=== PATIENT | male | born 1985 | race African-American/Black ===

== ENCOUNTER 2018-05-04 08:12 | Day surgery (SDC) | payer OTHER ==
[~2018-05-04] VITALS: Ht 182.9 cm; Wt 101.0 kg
[2018-05-04] VITALS (17 sets, daily range): BP systolic 84–131; BP diastolic 43–82; PULSE 62–112; RESP 12–22
--- NOTE | 2018-05-04 09:53 | HPN ---
Date/Time of Note Date/Time of Note DATE: 05/04/18 TIME: 09:53 Interval H&P Admission Note Pt. seen H&P reviewed: No system changes GE WISE MD May 04, 2018 09:53
--- NOTE | 2018-05-04 10:14 | PREAC ---
Date/Time of Note Date/Time of Note DATE: 05/04/18 TIME: 10:13 Anesthesia Eval and Record Evaluation Time Pre-Procedure Interview DATE: 05/04/18 TIME: 10:13 Age 32 Sex male NPO: 8 hrs Preoperative diagnosis right knee meniscus tear Planned procedure right knee arthroscopy Past Medical History Past Medical History: Includes GI: Obesity Surgery & Anesthesia Issues No known issue Meds Anticoagulation: No Beta Sandra within 24 hr: No Reason Beta Sandra not given: Pt. not on B-Sandra No Active Prescriptions or Reported Meds Meds reviewed: Yes Allergies Coded Allergies: No Known Allergy (Unverified , 05/04/18) Allergies Reviewed: Yes Labs/Studies Labs Reviewed: Reviewed by anesthesiologist test: N/A Pre-procedure Exam Last vitals Vital Signs Date Temp Pulse Resp B/P (MAP) Pulse Ox O2 O2 Flow FiO2 Time Delivery Rate 05/04/18 98.0 62 18 111/69 99 Room Air 08:49 (83) Airway: Adequate mouth opening, Adequate thyromental dist Mallampati: Mallampati II Teeth: Normal Lung: Normal Heart: Normal ASA Physical Status ASA physical status: 2 Emergency: None Planned Anesthetic General/MAC: LMA Planned Pain Management Parenteral pain med Pre-operative Attestations Prior to commencing anesthesia and surgery, the patient was re-evaluated, there was verification of: *The patient's identity *The results of appropriate recent lab work and preoperative vital signs *The above evaluation not changing prior to induction *Anesthetic plan, risk benefits, alternative and complications discussed with patient/family; questions answered; patient/family understands, accepts and wishes to proceed. ALONZO STRONG MD May 04, 2018 10:14
[2018-05-04] MEDS ORDERED: LIDOCAINE 1% (MPF) 30 ML INJ ONE (10:29)
[2018-05-04] MEDS ORDERED: TRIAMCINOLONE ACET 40 MG/ML INJ ONE (10:29)
[2018-05-04] MEDS ORDERED: FENTAnyl 50 MCG/ML VIAL IV PRN ×3 (10:30)
[2018-05-04] MEDS ORDERED: ONDANSETRON 4 MG INJ IV PRN (10:30)
[2018-05-04] MEDS ORDERED: OXYCODONE/ACETAMINOPHEN (5/325) TAB PO PRN (10:30)
[2018-05-04] MEDS ORDERED: HYDROmorphONE 1 MG/5 ML IV SYRINGE IV PRN ×3 (10:30)
[2018-05-04] MEDS ORDERED: PROCHLORPERAZINE 10 MG INJ IV PRN (10:30)
[2018-05-04] MEDS ORDERED: MEPERIDINE 25 MG INJ IV PRN (10:30)
[2018-05-04] MEDS ORDERED: DIPHENHYDRAMINE 50 MG INJ IV PRN (10:30)
[2018-05-04] MEDS ORDERED: FENTAnyl 50 MCG/ML VIAL ONE (10:38)
[2018-05-04] MEDS ORDERED: LIDOCAINE 2% (SDV) 5 ML INJ ONE (10:38)
[2018-05-04] MEDS ORDERED: PROPOFOL 20 ML ONE ×2 (10:38→10:47)
[2018-05-04] MEDS ORDERED: MIDAZOLAM 1 MG/ML 2 ML INJ ONE (10:38)
[2018-05-04] MEDS ORDERED: CEFAZOLIN 1 GM INJ ONE (10:47)
[2018-05-04] MEDS ORDERED: ONDANSETRON 4 MG INJ ONE (10:53)
[2018-05-04] MEDS ORDERED: FAMOTIDINE 20 MG INJ ONE (10:53)
[2018-05-04] MEDS ORDERED: DEXAMETHASONE 4 MG/ML 5 ML INJ ONE (10:53)
[2018-05-04] MEDS ORDERED: GLYCOPYRROLATE 0.4 MG INJ ONE (11:26)
--- NOTE | 2018-05-04 11:34 | SIPON ---
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
--- NOTE | 2018-05-04 11:38 | OPR ---
Date/Time of Note Date/Time of Note DATE: 05/04/18 TIME: 11:34 Operative Report Free Text/Dictation DATE OF SURGERY: May 04, 2018 PREOPERATIVE DIAGNOSIS: 8 knee posterior horn medial meniscal tear POSTOPERATIVE DIAGNOSIS: 1. Right Knee Medial Meniscus Tear 2. Right Knee partial ACL tear 3. 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 Right knee arthroscopy with partial medial meniscectomy 2. Right knee arthroscopy with partial lateral meniscectomy 2. Right knee steroid injection, CPT 39284 SURGEON: GE WISE MD ANESTHESIOLOGIST:Dr. Landers ANESTHESIA: General TOURNIQUET TIME: 16 minutes at 250mmHg BLOOD LOSS: Minimal. SPECIMEN: None. DISPOSITION: PACU IN STABLE CONDITION HISTORY: The patient is an 32 year-old male with a right knee posterior horn medial meniscus tear, who had failed non-operative intervention. The patient reported increasing pain with physical therapy and strongly desired other treatment. All risks, benefits, and potential complications of the procedure were then discussed including but not limited to DVT, PE, infection, damage to neurovascular structures, progression of arthritis, need to revision surgery, heart attack, stroke, and even . Patient understood the risks and informed consent was obtained. PROCEDURE: All risks, benefits, and potential complications of the procedure were discussed with the patient, informed consent was obtained. Patient was met in the pre-operative suite and the correct operative site was confirmed and mar ked. The patient was then transferred from the preoperative care unit to operating suite. Department of Anesthesia administered anesthetic without complications. After this, the patient was transferred to the operating table and positioned. All bony prominences were well padded. The patient was placed into the supine position. A proximal thigh tourniquet was placed. The tourniquet was then inflated to 250 mmHg. The knee was examined for range of motion and laxity. The right lower extremity was then sterilely prepped and draped in the normal fashion. Before starting a time out was taken to identify the correct operative site, and to confirm preoperative antibiotics consisting of 1 gram of IV Ancef were administered. An 11-blade stab incision was made along the anterolateral aspect for the anterolateral portal. A [place] trocar was then inserted and the arthroscope was then introduced. t was confirmed to be within the joint proper. A systematic tour about the knee was performed beginning in the suprapatellar pouch, followed by the patellofemoral region, medial gutter, medial compartment, intercondylar notch, lateral compartment, lateral gutter, and the posterolateral corner, With the arthroscope visualizing in the medial compartment, the determination of the anteromedial portal was made by inserting a spinal needle so that it would be in the proper orientation above the anterior horn of the medial meniscus directed back toward the posterior horn. Once this orientation was determined, an 11-blade stab incision was made at that site, again, followed by the insertion of a [place] trocar. An arthroscopy probe was then inserted and a subsequent systematic tour in the reverse direction utilizing the probe was then made. All menisci were probed. All articular cartilage surfaces of the tibial, femoral, and patella were probed. The cruciate ligaments also were probed. Again, any abnormal findings would be found in the top of this operative report. THERAPEUTIC ARTHROSCOPY: A posterior horn tear of the medial meniscus in the white-white zone to white- red zone, which was complex in nature and was irreparable, was debrided back to a stable margins using an arthroscopy meniscal biter and a 4.0 shaver. The medial femoral condyle did not require chondroplasty. The anterior cruciate ligament was noted to have a partial tear. The anterior and posterior cruciate ligaments were visualized, probed, stressed and found to be intact. The arthroscope was introduced into the lateral compartment. There was grade IV chondromalacia of the lateral femoral condyle. No chondroplasty was required. There was a complex tear of the anterior horn of the lateral meniscus. The shaver was used to perform a partial lateral meniscectomy. The arthroscope was removed from the lateral compartment and was placed into the medial portal, and again, a tour of the knee was made this time visualizing it from the medial side and with the arthroscopy probe placed at the lateral portal. There was no further pathology identified. There was no evidence of remaining loose body or other abnormality. All instruments were eventually able to be removed with no evidence of any breakage. The arthroscopy portals were reapproximated using 4-0 nylon in interrupted fashion. Prior to the removal of the arthroscope, 3cc of 1% Lidocai ne along with 1cc of kenalog were distilled into the knee joint before closure. The tourniquet was released. There was no significant bleeding. The wounds were dressed with sterile bandages and a compression wrap from the toes to the mid thigh was placed. The patient was transferred off of the operating table back to a hospital stretcher and taken to the recovery room in fair condition. There was no evidence of any vascular deficit. POSTOPERATIVE PLAN: The patient will be permitted weightbearing as tolerated and is encouraged to frequently flex and extend the knee as well the ankle. Crutches will be provided for patient if unable to ambulate without the use of these assistive devices. Appropriate oral analgesics and oral antiinflammatory medications will be provided for the patient.The patient was instructed on ice and elevation to the limb. The patient will follow up in my office in approximately 7-14 days for postoperative consultation, wound examination, suture removal. GE WISE MD May 04, 2018 11:38
--- NOTE | 2018-05-04 11:46 | PAC ---
Date/Time of Note Date/Time of Note DATE: 05/04/18 TIME: 11:46 Post-Anesthesia Notes Post-Anesthesia Note Last documented vital signs Vital Signs Date Temp Pulse Resp B/P (MAP) Pulse Ox O2 O2 Flow FiO2 Time Delivery Rate 05/04/18 98.0 62 18 111/69 99 Room Air 08:49 (83) Activity: WNL Respiratory function: WNL Cardiovascular function: WNL Mental status: Baseline Pain reasonably controlled: Yes Hydration appropriate: Yes Nausea/Vomiting absent: Yes Comments BP: 120/55 HR: 99 RR: 15 T: 98.9 SaO2: 100% ALONZO STRNOG MD May 04, 2018 11:46
== END 2018-05-04 13:18 | disposition home or self-care (01) ==
LOC: SDS 08:12
PROVIDERS: ATTEND Orthopaedic Surgery Adult Reconstructive Orthopaedic Surgery
DX: S83.241A Other tear of medial meniscus, current injury, right knee, initial encounter (principal); S83.281A Other tear of lateral meniscus, current injury, right knee, initial encounter; M94.261 Chondromalacia, right knee; M25.561 Pain in right knee; X58.XXXA Exposure to other specified factors, initial encounter; Y93.89 Activity, other specified; Y92.89 Other specified places as the place of occurrence of the external cause; Y99.8 Other external cause status
CPT/HCPCS: 29880; J0690; J1100; J2250; J2405; J3010; Z7512; Z7610